=== PATIENT | male | born 2000 | race Two or more races ===

== ENCOUNTER 2023-06-04 19:53 | Emergency (ER) | payer OTHER ==
[~2023-06-04] VITALS: Ht 182.9 cm; Wt 74.1 kg
[2023-06-04 20:03] VITALS: TEMP 98.2
[2023-06-04] MEDS ORDERED: PRED-554 PO (22:45)
[2023-06-04] MEDS ORDERED: PredniSONE 20 MG TABLET PO ONE (22:45)
[2023-06-04] MEDS ORDERED: ALBUTEROL SULFATE HFA 90 MCG/PUFF 8 GM INHALER IH ONE (22:45)
[2023-06-04 22:52] VITALS: BP 130/76; PULSE 67; RESP 18
== END 2023-06-04 22:57 | disposition home or self-care (01) ==
LOC: EMS 19:55
DX: R06.02 Shortness of breath (principal); F12.90 Cannabis use, unspecified, uncomplicated
CPT/HCPCS: 99283; 71045; 94640; J7512; J3535